=== PATIENT | male | born 1980 ===

== ENCOUNTER 2017-10-05 11:02 | Emergency (ER) | payer OTHER ==
[~2017-10-05] VITALS: Ht 172.7 cm; Wt 112.5 kg
[2017-10-05] MEDS ORDERED: LOTREL 5-40 MG1 EACH (11:13)
[2017-10-05] MEDS ORDERED: TOPROL XL50 MG (11:13)
== END 2017-10-05 15:56 | disposition home or self-care (01) ==
LOC: ER 11:02
DX: B34.9 Viral infection, unspecified (principal); J11.1 Influenza due to unidentified influenza virus with other respiratory manifestations